=== PATIENT | female | born 1990 ===

== ENCOUNTER 2024-10-29 07:15 | Inpatient (IN) | payer OTHER ==
[~2024-10-29] VITALS: Ht 134.6 cm; Wt 51.3 kg
[2024-10-29 08:29] VITALS: BP 96/63
[2024-10-29 08:32] VITALS: BP 113/72
[2024-10-29 08:51] LABS: URINE APPEARANCE Clear; URINE BILIRRUBIN Negative (NEGATIVE); URINE BLOOD Negative; URINE COLOR Yellow; URINE GLUCOSE Negative (NEGATIVE); URINE KETONE Trace (NEGATIVE); URINE LEUKOCYTE Small; URINE NITRATE Negative; URINE PROTEIN Negative (NEGATIVE); URINE UROBILINOGEN 0.2 E.U./dl
[2024-10-29 08:54] LABS: URINE BACTERIA 1420.9 uL (0.0-1933); URINE EPITHELIAL CELLS 29.7 uL (0.0-38.8); URINE RBC 8.9 uL (0.0-20.8); URINE WBC 39.2 uL (0.0-23.2)
[2024-10-29 08:55] LABS: URINE CAST 0.58 uL (0.0-1.40)
[2024-10-29 08:56] LABS: HEMATOCRIT 35.9 % (36.0-45.00); HEMOGLOBIN 11.1 g/dL (12.0-15.00); MEAN CORPUSCULAR HEMOGLOBIN 21.3 pg (27.00-32.0); MEAN CORPUSCULAR HGB CONC 30.9 g/dl (32.0-36.0); PLATELET COUNT 317 K/uL (150-450); RED BLOOD COUNT 5.21 M/uL (4.00-6.00); RED CELL DISTRIBUTION WIDTH 17.7 % (11.5-14.5)
[2024-10-29 08:57] LABS: MEAN CELL VOLUME 68.9 fL (80.00-100.00)
[2024-10-29 09:14] LABS: PARTIAL THROMBOPLASTIN TIME 26.5 SECONDS (22.0-34.0); PROTHROMBIN TIME 10.9 SECONDS (9.0-11.5)
[2024-10-29 09:49] LABS: ALBUMIN 4.2 gm/dL (3.4-5.0); BILIRUBIN TOTAL 0.27 mg/dL (0.3-1.2); CALCIUM 9.3 mg/dL (8.5-10.1); CREATININE SERUM 0.66 mg/dL (0.55-1.02); GFR 101.33; GLOBULINA 3.3 G/DL (2.4-3.5); POTASSIUM 4.21 mEq/L (3.5-5.1); TOTAL PROTEIN 7.5 gm/dL (6.4-8.2)
[2024-11-06] MEDS ORDERED: MORPHINE SULFATE 4 MG/ML CARTRIDGE IV PRN (13:00)
[2024-11-06] MEDS ORDERED: RINGERS SOLUTION,LACTATED 1,000 ML IV SCH (13:00)
[2024-11-06] MEDS ORDERED: KETOROLAC TROMETHAMINE 30 MG VIAL IV PRN (13:00)
[2024-11-06] MEDS ORDERED: MORPHINE SULFATE 4 MG/ML VIAL IV ONE ×2 (13:30→14:00)
[2024-11-06] MEDS ORDERED: CEFOXITIN SODIUM 2,000 MG VIAL IV ONE (13:30)
[2024-11-06] MEDS ORDERED: ONDANSETRON HCL 2 MG/ML VIAL ONE (13:56)
[2024-11-06 16:35] LABS: HEMOGLOBIN 11.1 g/dL (12.0-15.00); MEAN CORPUSCULAR HEMOGLOBIN 21.4 pg (27.00-32.0); MEAN CORPUSCULAR HGB CONC 30.9 g/dl (32.0-36.0); PLATELET COUNT 255 K/uL (150-450); RED BLOOD COUNT 5.21 M/uL (4.00-6.00); RED CELL DISTRIBUTION WIDTH 17.8 % (11.5-14.5)
[2024-11-06 16:36] LABS: MEAN CELL VOLUME 69.2 fL (80.00-100.00)
[2024-11-06] MEDS ORDERED: FAMOTIDINE/PF 20 MG/2 ML VIAL IV SCH (17:00)
[2024-11-06] MEDS ORDERED: FAMOTIDINE/PF 20 MG/2 ML VIAL ONE (17:04)
[2024-11-06 18:57] VITALS: BP 96/63
[2024-11-07] VITALS: BP 92/58
[2024-11-07 08:25] VITALS: BP 127/77
[2024-11-07] MEDS ORDERED: KETOROLAC TROMETHAMINE 30 MG VIAL IM PRN (08:45)
[2024-11-07] MEDS ORDERED: ACETAMINOPHEN WITH CODEINE 1 UDTAB TABLET PO PRN (09:00)
[2024-11-07] MEDS ORDERED: FAMOtidine 20 MG TABLET PO SCH (09:00)
[2024-11-07 11:40] VITALS: BP 104/69
[2024-11-07 17:04] VITALS: BP 100/55
[2024-11-08] VITALS: BP 98/63
[2024-11-08 10:41] VITALS: BP 98/64
== END 2024-11-08 10:58 | disposition home or self-care (01) | DRG 743 ==
LOC: O/R 11-06 05:32 → SURH 11-06 07:00 → OB/GYN 11-06 17:46
PROVIDERS: ADMIT Obstetrics & Gynecology; ATTEND Obstetrics & Gynecology
PROC: 0UB10ZZ Excision of Left Ovary, Open Approach (ICD-10-PCS; 2024-11-06)
PROC: 0UB90ZZ Excision of Uterus, Open Approach (ICD-10-PCS; principal; 2024-11-06 07:00)
DX: D25.1 Intramural leiomyoma of uterus (principal); R10.2 Pelvic and perineal pain; N80.102 Endometriosis of left ovary, unspecified depth